=== PATIENT | male | born 1955 | race Caucasian/White ===

== ENCOUNTER 2023-01-03 11:06 | Emergency (ER) | payer OTHER ==
[~2023-01-03] VITALS: Ht 182.9 cm; Wt 106.6 kg
[2023-01-03 11:42] VITALS: BP 149/87; PULSE 80; RESP 16; O2SAT 97
[2023-01-03] MEDS: KETOROLAC 30MG VIAL (30MG/ML) IM ONE (18:25)
[2023-01-03] MEDS ORDERED: IBUP-2070 PO (18:27)
[2023-01-03] MEDS ORDERED: ACET-2079 PO (18:27)
[2023-01-04] MEDS ORDERED: ACET-2079 PO (14:20)
== END 2023-01-03 18:49 | disposition home or self-care (01) ==
LOC: EDH 11:06
DX: S62.101A Fracture of unspecified carpal bone, right wrist, initial encounter for closed fracture (principal); S80.211A Abrasion, right knee, initial encounter; F41.9 Anxiety disorder, unspecified; E78.00 Pure hypercholesterolemia, unspecified; I10 Essential (primary) hypertension; Z90.49 Acquired absence of other specified parts of digestive tract; W18.39XA Other fall on same level, initial encounter; Y93.89 Activity, other specified; Y92.89 Other specified places as the place of occurrence of the external cause; Y99.8 Other external cause status
CPT/HCPCS: 99283; 73100; 96372; 29125; J1885